=== PATIENT | male | born 1935 | race Caucasian/White ===

== ENCOUNTER 2022-12-23 11:43 | Inpatient (IN) | payer MEDICARE, OTHER ==
[~2022-12-23] VITALS: Ht 170.2 cm; Wt 74.8 kg
[2022-12-23] MEDS ORDERED: ASCO-352 PO (12:28)
[2022-12-23] MEDS ORDERED: CHOL100043 PO (12:28)
[2022-12-23] MEDS ORDERED: MAGN400O6 PO (12:28)
[2022-12-23] MEDS ORDERED: METO25TA3 PO (12:28)
[2022-12-23] MEDS ORDERED: TRAZ-182 PO (12:28)
[2022-12-23] MEDS ORDERED: BISA10SU11 RC (12:28)
[2022-12-23] MEDS ORDERED: CLOP75TA15 PO (12:28)
[2022-12-23] MEDS ORDERED: FERR325T23 PO (12:28)
[2022-12-23] MEDS ORDERED: CYAN-51 PO (12:28)
[2022-12-23] MEDS ORDERED: ROSU10TA2 PO (12:28)
[2022-12-23] MEDS ORDERED: CARB1TAB21 PO (12:28)
[2022-12-23] MEDS ORDERED: NICO-676 TD (12:28)
[2022-12-23] MEDS ORDERED: DOCU-141 PO (12:28)
[2022-12-23] MEDS ORDERED: ACET-868 PO (12:28)
[2022-12-23] MEDS ORDERED: MELA3TAB41 PO (12:28)
[2022-12-23] MEDS ORDERED: NA P133E RC (12:28)
[2022-12-23] MEDS ORDERED: POVI3780 TP (12:28)
[2022-12-23] MEDS ORDERED: MEMA10TA PO (12:28)
[2022-12-23] MEDS ORDERED: APIX2.5T PO (12:28)
[2022-12-23] MEDS ORDERED: ERGO500040 PO (12:28)
[2022-12-23] MEDS ORDERED: TRAM50TA2 PO (12:28)
[2022-12-23] MEDS ORDERED: MULT-447 PO (12:28)
[2022-12-23] MEDS ORDERED: IBUP-1955 PO (12:28)
[2022-12-23] MEDS ORDERED: DONE5TAB34 PO (12:28)
[2022-12-23] MEDS ORDERED: CRAN425C6 PO (12:28)
[2022-12-23] MEDS ORDERED: PANT40TA2 PO (12:28)
[2022-12-23 12:45] LABS: BASOPHILS % (AUTO) 0.7 % (0.0-2.0); EOSINOPHILS # (AUTO) 0.3 K/uL (0.0-0.7); EOSINOPHILS % (AUTO) 5.4 % (0.0-6.0); HEMATOCRIT 30 % (39-51); HEMOGLOBIN 9.8 g/dL (13.5-17.5); LYMPHOCYTES % (AUTO) 33.7 % (20.0-44.0); MEAN CORPUSCULAR HEMOGLOBIN 29 PG (26.0-33.0); MEAN CORPUSCULAR HGB CONC 33 g/dl (31.0-36.0); MEAN CORPUSCULAR VOLUME 89 fL (80-96); MONOCYTES # (AUTO) 0.4 K/uL (0.1-1.30); MONOCYTES % (AUTO) 6.2 % (2.0-12.0); NEUTROPHILS # (AUTO) 3.1 K/uL (1.8-8.9); PLATELET COUNT (AUTO) 296 K/uL (150-450); RED BLOOD CELL COUNT(AUTO) 3.36 MIL/uL (4.5-6.0); RED CELL DISTRIBUTION WIDTH 15.9 % (11.5-15.0); WHITE BLOOD COUNT (AUTO) 5.8 K/uL (4.3-11.0)
[2022-12-23 12:52] LABS: CALCIUM, SERUM 9.4 mg/dL (8.5-10.1); CARBON DIOXIDE 29 mmol/L (21-32); CHLORIDE 103 mmol/L (98-107); CREATININE 1.1 mg/dL (0.6-1.3); GLUCOSE 111 mg/dL (74-106); POTASSIUM 3.9 mmol/L (3.5-5.1); SODIUM SERUM 138 mmol/L (136-145); UREA NITROGEN, BLOOD 21 mg/dL (7-18)
[2022-12-23 12:57] LABS: ALANINE AMINOTRANSFERASE 14 U/L (12-78); ALBUMIN 3.4 g/dL (3.4-5.0); ALKALINE PHOSPHATASE 115 U/L (46-116); ASPARTATE AMINOTRANSFERASE 14 U/L (15-37); BILIRUBIN,DIRECT 0.1 mg/dL (0.0-0.2); BILIRUBIN,TOTAL 0.3 mg/dL (0.2-1.0)
[2022-12-23 12:59] LABS: INR 1.02 (0.91-1.10); PARTIAL THROMBOPLASTIN TIME 26.2 SEC (24.3-34.3); PROTHROMBIN TIME 10.7 SECS (9.2-11.1)
[2022-12-23] MEDS ORDERED: BISACODYL SUPP (10 MG) 10 MG/SUPP.RECT SUPP.RECT RC PRN (14:30)
[2022-12-23] MEDS ORDERED: ENOXAPARIN SODIUM 40 MG/0.4 ML DISP.SYRIN SQ SCH (14:30)
[2022-12-23] MEDS ORDERED: NA PHOS,M-B/NA PHOS,DI-BA 1 EA ENEMA RC PRN (14:30)
[2022-12-23] MEDS ORDERED: MAGNESIUM HYDROXIDE 30 ML UDC PO PRN (14:30)
[2022-12-23] MEDS ORDERED: IBUPROFEN 600 MG TABLET PO PRN (14:30)
[2022-12-23] MEDS ORDERED: ONDANSETRON HCL/PF 4 MG/2 ML VIAL IVP PRN (14:30)
[2022-12-23] MEDS ORDERED: Z GUARD REMEDY 4 OZ OINT TP PRN (14:30)
[2022-12-23] MEDS ORDERED: ACETAMINOPHEN 325 MG TABLET PO PRN (14:30)
[2022-12-23 15:00] VITALS: BP 121/81; TEMP 98.4; O2SAT 95
[2022-12-23] MEDS: APIXABAN 2.5 MG TABLET PO SCH (17:00)
[2022-12-23] MEDS: CARBIDOPA/LEVODOPA 25/100 MG 1 UDTAB PO SCH (17:46)
[2022-12-23] MEDS: MEMANTINE HCL 5 MG TABLET PO SCH (17:46)
[2022-12-23] MEDS: DOCUSATE SODIUM 100 MG CAPSULE PO SCH (17:46)
[2022-12-23] MEDS: ASCORBIC ACID 500 MG TABLET PO SCH (17:47)
[2022-12-23 20:00] VITALS: BP 118/65; TEMP 97.7; O2SAT 94
[2022-12-23] MEDS: ATORVASTATIN 10 MG TABLET PO SCH (22:40)
[2022-12-23] MEDS: TRAZODONE 50 MG TABLET PO SCH (22:41)
[2022-12-24 06:18] LABS: BASOPHILS % (AUTO) 0.7 % (0.0-2.0); EOSINOPHILS # (AUTO) 0.4 K/uL (0.0-0.7); EOSINOPHILS % (AUTO) 6.4 % (0.0-6.0); HEMATOCRIT 29 % (39-51); HEMOGLOBIN 9.7 g/dL (13.5-17.5); LYMPHOCYTES # (AUTO) 1.7 K/uL (0.8-4.8); LYMPHOCYTES % (AUTO) 25.9 % (20.0-44.0); MEAN CORPUSCULAR HEMOGLOBIN 29 PG (26.0-33.0); MEAN CORPUSCULAR HGB CONC 33 g/dl (31.0-36.0); MEAN CORPUSCULAR VOLUME 88 fL (80-96); MONOCYTES # (AUTO) 0.4 K/uL (0.1-1.30); MONOCYTES % (AUTO) 6.2 % (2.0-12.0); NEUTROPHILS # (AUTO) 3.9 K/uL (1.8-8.9); NEUTROPHILS % (AUTO) 60.8 % (43.0-81.0); PLATELET COUNT (AUTO) 285 K/uL (150-450); RED CELL DISTRIBUTION WIDTH 15.7 % (11.5-15.0); WHITE BLOOD COUNT (AUTO) 6.4 K/uL (4.3-11.0)
[2022-12-24 06:28] LABS: CALCIUM, SERUM 9.3 mg/dL (8.5-10.1); CARBON DIOXIDE 27 mmol/L (21-32); CHLORIDE 100 mmol/L (98-107); CREATININE 1.1 mg/dL (0.6-1.3); GLUCOSE 99 mg/dL (74-106); MAGNESIUM 2.2 mg/dL (1.8-2.4); PHOSPHORUS 4.1 mg/dL (2.5-4.9); SODIUM SERUM 135 mmol/L (136-145); UREA NITROGEN, BLOOD 20 mg/dL (7-18)
[2022-12-24 06:48] LABS: CHOLESTEROL 134 mg/dL (<200); HDL CHOLESTEROL 52 mg/dL (40-60); LDL 66 mg/dL (0-99); THYROID STIMULATING HORMONE 2.775 uIU/mL (0.358-3.74); TRIGLYCERIDES 123 mg/dL (30-150)
[2022-12-24 07:00] VITALS: BP 122/73; TEMP 97.9; O2SAT 97
[2022-12-24] MEDS: PANTOPRAZOLE 40 MG TABLET.DR PO SCH (07:30)
[2022-12-24] MEDS: NICOTINE PATCH (14MG) 14 MG PATCH.TD24 TD SCH (09:00)
[2022-12-24] MEDS: DOCUSATE SODIUM 100 MG CAPSULE PO SCH ×2 (09:00→17:05)
[2022-12-24] MEDS: MULTIVIT W/MINERALS 1 TAB TABLET PO SCH (09:00)
[2022-12-24] MEDS: CHOLECALCIFEROL 1,000 UNIT TABLET (VIT D3) PO SCH (09:00)
[2022-12-24] MEDS: METOPROLOL SUCCINATE 25 MG TAB.SR.24H PO SCH (09:00)
[2022-12-24] MEDS: CYANOCOBALAMIN 500 MCG TABLET PO SCH (09:00)
[2022-12-24] MEDS: CARBIDOPA/LEVODOPA 25/100 MG 1 UDTAB PO SCH ×3 (09:00→17:05)
[2022-12-24] MEDS: CLOPIDOGREL BISULFATE 75 MG TABLET PO SCH (09:00)
[2022-12-24] MEDS: APIXABAN 2.5 MG TABLET PO SCH ×2 (09:00→17:00)
[2022-12-24] MEDS: DONEPEZIL 5 MG TABLET PO SCH (09:00)
[2022-12-24] MEDS: MEMANTINE HCL 5 MG TABLET PO SCH ×2 (09:00→17:05)
[2022-12-24] MEDS: FERROUS SULFATE (325 MG) 325 MG/TAB TABLET PO SCH (09:00)
[2022-12-24] MEDS ORDERED: FENTANYL PF 250MCG/5ML AMPUL ONE (10:13)
[2022-12-24 16:00] VITALS: BP 113/62; TEMP 98; O2SAT 96
[2022-12-24] MEDS: ASCORBIC ACID 500 MG TABLET PO SCH (17:05)
[2022-12-24 20:00] VITALS: BP 132/72; TEMP 97.7; O2SAT 95
[2022-12-24] MEDS: TRAMADOL HCL 50 MG TABLET PO PRN (20:04)
[2022-12-24] MEDS: TRAZODONE 50 MG TABLET PO SCH (21:02)
[2022-12-24] MEDS: ATORVASTATIN 10 MG TABLET PO SCH (21:03)
[2022-12-25 06:24] LABS: BASOPHILS % (AUTO) 0.5 % (0.0-2.0); EOSINOPHILS # (AUTO) 0.3 K/uL (0.0-0.7); EOSINOPHILS % (AUTO) 4.3 % (0.0-6.0); HEMATOCRIT 28 % (39-51); HEMOGLOBIN 9.3 g/dL (13.5-17.5); LYMPHOCYTES # (AUTO) 1.7 K/uL (0.8-4.8); LYMPHOCYTES % (AUTO) 23.6 % (20.0-44.0); MEAN CORPUSCULAR HEMOGLOBIN 29 PG (26.0-33.0); MEAN CORPUSCULAR HGB CONC 33 g/dl (31.0-36.0); MEAN CORPUSCULAR VOLUME 88 fL (80-96); MONOCYTES # (AUTO) 0.5 K/uL (0.1-1.30); MONOCYTES % (AUTO) 7.1 % (2.0-12.0); NEUTROPHILS # (AUTO) 4.7 K/uL (1.8-8.9); NEUTROPHILS % (AUTO) 64.5 % (43.0-81.0); PLATELET COUNT (AUTO) 263 K/uL (150-450); RED BLOOD CELL COUNT(AUTO) 3.19 MIL/uL (4.5-6.0); RED CELL DISTRIBUTION WIDTH 15.5 % (11.5-15.0); WHITE BLOOD COUNT (AUTO) 7.2 K/uL (4.3-11.0)
[2022-12-25 06:58] LABS: CALCIUM, SERUM 9.3 mg/dL (8.5-10.1); CREATININE 1.1 mg/dL (0.6-1.3); MAGNESIUM 2.2 mg/dL (1.8-2.4); PHOSPHORUS 4.2 mg/dL (2.5-4.9); POTASSIUM 4.3 mmol/L (3.5-5.1)
[2022-12-25 08:00] VITALS: BP 111/63; TEMP 98.1; O2SAT 95
[2022-12-25 08:13] LABS: ALBUMIN 3.3 g/dL (3.4-5.0); BILIRUBIN,TOTAL 0.5 mg/dL (0.2-1.0); TOTAL PROTEIN, SERUM 7.6 g/dL (6.4-8.2)
[2022-12-25] MEDS: MEMANTINE HCL 5 MG TABLET PO SCH (08:34)
[2022-12-25] MEDS: DOCUSATE SODIUM 100 MG CAPSULE PO SCH (08:34)
[2022-12-25] MEDS: DONEPEZIL 5 MG TABLET PO SCH (08:34)
[2022-12-25] MEDS: CLOPIDOGREL BISULFATE 75 MG TABLET PO SCH (08:34)
[2022-12-25] MEDS: CARBIDOPA/LEVODOPA 25/100 MG 1 UDTAB PO SCH ×2 (08:34→12:53)
[2022-12-25] MEDS: CYANOCOBALAMIN 500 MCG TABLET PO SCH (08:34)
[2022-12-25] MEDS: PANTOPRAZOLE 40 MG TABLET.DR PO SCH (08:34)
[2022-12-25] MEDS: CHOLECALCIFEROL 1,000 UNIT TABLET (VIT D3) PO SCH (08:34)
[2022-12-25] MEDS: FERROUS SULFATE (325 MG) 325 MG/TAB TABLET PO SCH (08:34)
[2022-12-25] MEDS: MULTIVIT W/MINERALS 1 TAB TABLET PO SCH (08:34)
[2022-12-25 08:35] VITALS: BP 111/63
[2022-12-25] MEDS: APIXABAN 2.5 MG TABLET PO SCH (08:35)
[2022-12-25] MEDS: METOPROLOL SUCCINATE 25 MG TAB.SR.24H PO SCH (08:35)
[2022-12-25] MEDS: NICOTINE PATCH (14MG) 14 MG PATCH.TD24 TD SCH (08:36)
[2022-12-25] MEDS: TRAMADOL HCL 50 MG TABLET PO PRN (15:03)
[2022-12-29] MEDS ORDERED: ERGOCALCIFEROL (VITAMIN D 2) 50,000 UNIT CAPSULE PO SCH (14:30)
== END 2022-12-25 16:45 | DRG 577 ==
LOC: ER 11:50 → MED 14:03
PROC: 0HB6XZZ Excision of Back Skin, External Approach (ICD-10-PCS; principal; 2022-12-24)
PROC: 0HX1XZZ Transfer Face Skin, External Approach (ICD-10-PCS; 2022-12-24)
PROC: 0HB1XZZ Excision of Face Skin, External Approach (ICD-10-PCS; 2022-12-24)
DX: C44.329 Squamous cell carcinoma of skin of other parts of face (principal); D68.59 Other primary thrombophilia; F03.92 Unspecified dementia, unspecified severity, with psychotic disturbance; F03.93 Unspecified dementia, unspecified severity, with mood disturbance; Z79.899 Other long term (current) drug therapy; C44.519 Basal cell carcinoma of skin of other part of trunk; I10 Essential (primary) hypertension; I25.10 Atherosclerotic heart disease of native coronary artery without angina pectoris; I44.7 Left bundle-branch block, unspecified; I48.91 Unspecified atrial fibrillation; E78.5 Hyperlipidemia, unspecified; D64.9 Anemia, unspecified; K21.9 Gastro-esophageal reflux disease without esophagitis; Z79.01 Long term (current) use of anticoagulants; Z79.02 Long term (current) use of antithrombotics/antiplatelets; Z86.711 Personal history of pulmonary embolism; Z96.641 Presence of right artificial hip joint; Z86.718 Personal history of other venous thrombosis and embolism; Z95.820 Peripheral vascular angioplasty status with implants and grafts; F32.A Depression, unspecified; F29 Unspecified psychosis not due to a substance or known physiological condition; D50.9 Iron deficiency anemia, unspecified
CPT/HCPCS: 36415; 71045-TC; 80048-TC; 80053-TC; 80061-TC; 80076-TC; 83735-TC; 84100-TC; 84443-TC; 85025-TC; 85730-TC; 86850-TC; 87081-TC; G0378; J3010